=== PATIENT | female | born 2000 | race American Indian/Alaskan Native ===

== ENCOUNTER 2019-05-17 00:06 | Emergency (ER) | payer MEDICARE ==
[2019-05-17 00:11] VITALS: BP 152/67
[2019-05-17] MEDS ORDERED: ACETAMINOPHEN 325 MG TAB PO ONE (00:14)
== END 2019-05-17 00:26 | disposition left against medical advice (07) ==
LOC: ED 00:06 → LD 00:06 → ED 00:26
DX: R50.9 Fever, unspecified (principal); Z53.21 Procedure and treatment not carried out due to patient leaving prior to being seen by health care provider
CPT/HCPCS: 93005; 93010